=== PATIENT | female | born 1965 | race Caucasian/White ===

== ENCOUNTER 2017-06-28 22:36 | Emergency (ER) | payer OTHER ==
[~2017-06-28] VITALS: Ht 154.9 cm; Wt 85.0 kg
[2017-06-28] MEDS ORDERED: LISI-662 PO (22:44)
[2017-06-28] MEDS ORDERED: ASPI81 PO (22:44)
[2017-06-29 01:40] VITALS: BP 103/78
== END 2017-06-29 02:44 | disposition home or self-care (01) ==
LOC: EMS 22:36
DX: S05.12XA Contusion of eyeball and orbital tissues, left eye, initial encounter (principal); I10 Essential (primary) hypertension; Z79.82 Long term (current) use of aspirin; V43.52XA Car driver injured in collision with other type car in traffic accident, initial encounter; Y93.89 Activity, other specified; Y92.410 Unspecified street and highway as the place of occurrence of the external cause; Y99.8 Other external cause status
CPT/HCPCS: 70450; 72125; 99284